=== PATIENT | female | born 1980 | race Caucasian/White ===

== ENCOUNTER 2022-01-13 09:50 | Outpatient (CLI) | payer OTHER | END 2022-01-13 09:51 | disposition home or self-care (01) | LOC: BICMAMMO 09:50 | PROVIDERS: ATTEND Nurse Practitioner Family | DX: D05.12 Intraductal carcinoma in situ of left breast (principal); N63.21 Unspecified lump in the left breast, upper outer quadrant; R92.1 Mammographic calcification found on diagnostic imaging of breast; Z98.890 Other specified postprocedural states | CPT/HCPCS: 19083; 19084; 77066; 88305; G0279 ==